=== PATIENT | male | born 1985 | race Caucasian/White ===

== ENCOUNTER → 2020-12-29 | Outpatient (CLI) | payer OTHER ==
[2014-10-30 15:48] VITALS: BP 115/77
[~2020-12-29] MED LIST: NAPR220C4 PO
--- NOTE | 2020-12-29 11:00 | RAD ---
EXAM: Right tibia and fibula, 2 views. HISTORY: Pain. COMPARISON: None. FINDINGS: 2 views of the tibia and fibula are obtained. There is no fracture, dislocation or subluxat ion. The ankle mortise is intact. IMPRESSION: No acute osseous finding. Electronically signed by: Morenita Arrieta MD (12/29/2020 10:58 AM) [id number]
== END ==
LOC: RAD 10:23
PROVIDERS: ATTEND Nurse Practitioner Family
DX: M79.661 Pain in right lower leg (principal)
CPT/HCPCS: 73590